=== PATIENT | female | born 1960 | race Caucasian/White ===

== ENCOUNTER 2020-07-24 12:45 | Emergency (ER) | payer BC, OTHER ==
[~2020-07-24] VITALS: Ht 170.2 cm; Wt 65.8 kg
[2020-07-24 12:56] VITALS: BP 127/75
[2020-07-24] MEDS ORDERED: TDAP [DIPH/PERTUSSIS/TET] 0.5 ML VIAL IM ONE ×2 (13:00→13:08)
[2020-07-24] MEDS: LIDOCAINE 1% INJ 50 ML MDV IJ ONE ×2 (13:00→13:18)
[2020-07-24] MEDS ORDERED: LIDOCAINE HCL/MPF 1% 30 ML VIAL IJ ONE (13:08)
[2020-07-24] MEDS ORDERED: LIDOCAINE 1%-EPI 1:100,000 20 ML VIAL ONE (13:41)
--- NOTE | 2020-07-24 13:42 | NUR ---
dr mann asked for lido w/ epi since lacerated wound is bleeding profusely
[2020-07-24] MEDS ORDERED: GELATIN SPONGE,ABSORBABLE 1 SPONGE SPONGE TP ONE (13:49)
[2020-07-24] MEDS ORDERED: LIDOCAINE 1%-EPI 1:100,000 20 ML VIAL TP ONE (14:30)
--- NOTE | 2020-07-24 14:36 | NUR ---
Patient discharged to home in stable condition. Written and verbal after care instructions given. Patient verbalizes understanding of instruction. Pt ambulatory with a steady gait
== END 2020-07-24 14:38 | disposition home or self-care (01) ==
LOC: ER 12:56
DX: S61.011A Laceration without foreign body of right thumb without damage to nail, initial encounter (principal); J43.9 Emphysema, unspecified; Z88.8 Allergy status to other drugs, medicaments and biological substances; W26.8XXA Contact with other sharp object(s), not elsewhere classified, initial encounter; Y93.89 Activity, other specified; Y92.89 Other specified places as the place of occurrence of the external cause; Y99.8 Other external cause status
CPT/HCPCS: 90471; 90715; 99283; J3490 ×2